=== PATIENT | male | born 1950 | race Caucasian/White ===

== ENCOUNTER 2022-02-01 13:43 | Emergency (ER) | payer OTHER ==
[2022-02-01 14:15] VITALS: BMI 33.3
[2022-02-01] MEDS ORDERED: ACETAMINOPHEN 325 MG TABLET (FP) PO ONE (14:50)
[2022-02-01 16:45] VITALS: RESP 18
[2022-02-01] MEDS ORDERED: ACETAMINOPHEN 325 MG TABLET (FP) ONE ×2 (16:58→17:00)
[2022-02-01 18:36] VITALS: BP 131/64; PULSE 69; TEMP 98.9
== END 2022-02-01 18:51 ==
LOC: JER 13:43
DX: U07.1 COVID-19 (principal)
CPT/HCPCS: 71045-TC-FY; 93005; 93010; 99283-25

== ENCOUNTER 2022-02-05 10:29 | Inpatient (IN) | payer OTHER ==
[2022-02-05 12:29] LABS: BASO % 0.3 % (0-2.0); EOS % 1.6 % (0-4.5); HEMATOCRIT 38.6 % (35.4-49); HEMOGLOBIN 12.5 GM/dL (11.7-16.9); LYMPH % 13.3 % (8-40); MCHC 32.3 g/dl (32.0-35.9); MEAN CELL VOLUME 92.9 fl (80-96); MEAN PLT VOLUME 8.9 fl (7.5-11.1); MONO % 13.7 % (3.8-10.2); NEUT % 71.1 % (42.8-82.8); PLATELET COUNT 214 10^3/uL (134-434); RBC 4.16 M/mm3 (4.00-5.60); RDW 14.2 % (11.9-15.9); WHITE BLOOD COUNT 7.7 K/mm3 (4.0-10.0)
[2022-02-05 12:54] LABS: CALCIUM 8.9 mg/dL (8.5-10.1)
[2022-02-05 12:55] LABS: ALBUMIN 2.8 g/dl (3.4-5.0); BLOOD UREA NITROGEN 18.3 mg/dL (7-18); MAGNESIUM 2.2 mg/dL (1.8-2.4)
[2022-02-05 12:59] LABS: BILIRUBIN,TOTAL 0.4 mg/dL (0.2-1)
[2022-02-05 13:00] LABS: TOT PROT 6.2 g/dl (6.4-8.2)
[2022-02-05] MEDS: INSULIN SLIDING SCALE (NOVOLOG) 1 VIAL SQ SCH (18:13)
[2022-02-05] MEDS: SODIUM CHLORIDE 1,000 ML IV SCH (18:13)
[2022-02-05] MEDS ORDERED: BLOOD GLUCOSE TRANSMITTER TP SCH (21:15)
[2022-02-06] MEDS: CARVEDILOL 12.5 MG TABLET (FP) PO SCH ×3 (02:37→22:51)
[2022-02-06] MEDS: INSULIN SLIDING SCALE (NOVOLOG) 1 VIAL SQ SCH ×3 (02:37→22:53)
[2022-02-06] MEDS: SODIUM CHLORIDE 1,000 ML IV SCH ×2 (04:57→17:25)
[2022-02-06 08:02] LABS: BASO % 0.3 % (0-2.0); EOS % 2.2 % (0-4.5); HEMATOCRIT 38.2 % (35.4-49); HEMOGLOBIN 12.5 GM/dL (11.7-16.9); LYMPH % 18.2 % (8-40); MCH 30.2 pg (25.7-33.7); MCHC 32.7 g/dl (32.0-35.9); MEAN CELL VOLUME 92.4 fl (80-96); MEAN PLT VOLUME 9.2 fl (7.5-11.1); NEUT % 65.3 % (42.8-82.8); PLATELET COUNT 196 10^3/uL (134-434); RBC 4.13 M/mm3 (4.00-5.60); RDW 14.2 % (11.9-15.9); WHITE BLOOD COUNT 6.6 K/mm3 (4.0-10.0)
[2022-02-06 08:21] LABS: ALBUMIN 2.6 g/dl (3.4-5.0); CALCIUM 8.5 mg/dL (8.5-10.1)
[2022-02-06 08:22] LABS: BLOOD UREA NITROGEN 14.5 mg/dL (7-18)
[2022-02-06 08:24] LABS: CREATININE 0.8 mg/dL (0.55-1.3)
[2022-02-06 08:25] LABS: PHOSPHOROUS 2.4 mg/dL (2.5-4.9)
[2022-02-06 08:26] LABS: TOT PROT 5.8 g/dl (6.4-8.2)
[2022-02-06] MEDS ORDERED: FUROSEMIDE 20 MG TABLET (FP) PO SCH (10:00)
[2022-02-06 11:26] LABS: INR 1.14 (0.83-1.09); PROTHROMBIN TIME (PATIENT) 13.1 SEC (9.7-13.0)
[2022-02-06] MEDS: ASPIRIN 81 MG CHEWABLE TABLETS PO SCH (12:54)
[2022-02-06] MEDS: CHOLECALCIFEROL (VIT D3) 1,000 UNIT (25 MCG) TABLET PO SCH (12:54)
[2022-02-06] MEDS: PANTOPRAZOLE 40 MG TABLET PO SCH (12:54)
[2022-02-06] MEDS: ENOXAPARIN NA (PORCINE) 40 MG/0.4 ML DISP.SYRIN SQ SCH (13:38)
[2022-02-06] MEDS: FLUoxetine HCL 20 MG CAPSULE PO SCH (13:40)
[2022-02-06] MEDS: ENALAPRIL MALEATE 5 MG TABLET PO SCH (13:40)
[2022-02-06] MEDS: MULTIVITAMINS (DAILY MVI) TABLET (FP) PO SCH (13:40)
[2022-02-06] MEDS: prednisoLONE ACETATE 1% OPHTH SUSP 5 ML BOTTLE OD SCH (14:34)
[2022-02-06] MEDS: INSULIN (LEVEMIR) 100 UNITS/ML UNITS SQ SCH (22:51)
[2022-02-07] MEDS: INSULIN SLIDING SCALE (NOVOLOG) 1 VIAL SQ SCH ×4 (06:49→21:29)
[2022-02-07 09:45] LABS: CALCIUM 8.7 mg/dL (8.5-10.1)
[2022-02-07 09:46] LABS: ALBUMIN 2.6 g/dl (3.4-5.0); BLOOD UREA NITROGEN 15.8 mg/dL (7-18)
[2022-02-07] MEDS: ASPIRIN 81 MG CHEWABLE TABLETS PO SCH (09:48)
[2022-02-07] MEDS: CARVEDILOL 12.5 MG TABLET (FP) PO SCH ×2 (09:49→21:29)
[2022-02-07] MEDS: MULTIVITAMINS (DAILY MVI) TABLET (FP) PO SCH (09:49)
[2022-02-07] MEDS: CHOLECALCIFEROL (VIT D3) 1,000 UNIT (25 MCG) TABLET PO SCH (09:49)
[2022-02-07] MEDS: PANTOPRAZOLE 40 MG TABLET PO SCH (09:49)
[2022-02-07 09:50] LABS: BILIRUBIN,TOTAL 0.8 mg/dL (0.2-1)
[2022-02-07] MEDS: FLUoxetine HCL 20 MG CAPSULE PO SCH (09:52)
[2022-02-07] MEDS: ENALAPRIL MALEATE 5 MG TABLET PO SCH (09:52)
[2022-02-07] MEDS: ENOXAPARIN NA (PORCINE) 40 MG/0.4 ML DISP.SYRIN SQ SCH (09:53)
[2022-02-07] MEDS: prednisoLONE ACETATE 1% OPHTH SUSP 5 ML BOTTLE OD SCH (09:53)
[2022-02-07 14:25] VITALS: BMI 31.3
[2022-02-07] MEDS: INSULIN (NOVOLOG) ASPART 100 UNITS/ML 10ML VIAL SQ SCH ×2 (14:31→17:30)
[2022-02-07] MEDS: guaiFENesin/D-M SUGAR-FREE/ACLHOL-FREE 5 ML UNIT DOSE PO PRN (15:56)
[2022-02-07] MEDS ORDERED: INSULIN (LEVEMIR) 100 UNITS/ML UNITS SQ ONE (21:05)
[2022-02-07] MEDS: INSULIN (LEVEMIR) 100 UNITS/ML UNITS SQ SCH (21:29)
[2022-02-08] MEDS: INSULIN (NOVOLOG) ASPART 100 UNITS/ML 10ML VIAL SQ SCH ×3 (08:09→17:05)
[2022-02-08] MEDS: INSULIN SLIDING SCALE (NOVOLOG) 1 VIAL SQ SCH ×5 (08:09→23:10)
[2022-02-08 09:24] LABS: CALCIUM 8.7 mg/dL (8.5-10.1)
[2022-02-08 09:25] LABS: ALBUMIN 2.5 g/dl (3.4-5.0)
[2022-02-08 09:27] LABS: CREATININE 1.1 mg/dL (0.55-1.3)
[2022-02-08 09:28] LABS: TOT PROT 5.6 g/dl (6.4-8.2)
[2022-02-08] MEDS: PANTOPRAZOLE 40 MG TABLET PO SCH (10:33)
[2022-02-08] MEDS: FLUoxetine HCL 20 MG CAPSULE PO SCH (10:33)
[2022-02-08] MEDS: CARVEDILOL 12.5 MG TABLET (FP) PO SCH ×2 (10:33→22:48)
[2022-02-08] MEDS: MULTIVITAMINS (DAILY MVI) TABLET (FP) PO SCH (10:33)
[2022-02-08] MEDS: ASPIRIN 81 MG CHEWABLE TABLETS PO SCH (10:33)
[2022-02-08] MEDS: CHOLECALCIFEROL (VIT D3) 1,000 UNIT (25 MCG) TABLET PO SCH (10:33)
[2022-02-08] MEDS: ENALAPRIL MALEATE 5 MG TABLET PO SCH (10:33)
[2022-02-08] MEDS: prednisoLONE ACETATE 1% OPHTH SUSP 5 ML BOTTLE OD SCH (10:34)
[2022-02-08] MEDS: ENOXAPARIN NA (PORCINE) 40 MG/0.4 ML DISP.SYRIN SQ SCH (10:34)
[2022-02-08] MEDS: guaiFENesin/D-M SUGAR-FREE/ACLHOL-FREE 5 ML UNIT DOSE PO PRN (10:59)
[2022-02-08] MEDS: INSULIN (LEVEMIR) 100 UNITS/ML UNITS SQ SCH (22:48)
[2022-02-09] MEDS: INSULIN SLIDING SCALE (NOVOLOG) 1 VIAL SQ SCH ×4 (06:08→23:24)
[2022-02-09] MEDS: INSULIN (NOVOLOG) ASPART 100 UNITS/ML 10ML VIAL SQ SCH ×3 (06:08→16:55)
[2022-02-09 09:42] LABS: CALCIUM 8.7 mg/dL (8.5-10.1)
[2022-02-09 09:43] LABS: ALBUMIN 2.7 g/dl (3.4-5.0); BLOOD UREA NITROGEN 15.8 mg/dL (7-18)
[2022-02-09 09:46] LABS: CREATININE 1.3 mg/dL (0.55-1.3)
[2022-02-09 09:47] LABS: BILIRUBIN,TOTAL 0.7 mg/dL (0.2-1); TOT PROT 6.1 g/dl (6.4-8.2)
[2022-02-09] MEDS: INSULIN (LEVEMIR) 100 UNITS/ML UNITS SQ SCH (10:03)
[2022-02-09] MEDS: PANTOPRAZOLE 40 MG TABLET PO SCH (10:04)
[2022-02-09] MEDS: ENALAPRIL MALEATE 5 MG TABLET PO SCH (10:04)
[2022-02-09] MEDS: ENOXAPARIN NA (PORCINE) 40 MG/0.4 ML DISP.SYRIN SQ SCH (10:04)
[2022-02-09] MEDS: CARVEDILOL 12.5 MG TABLET (FP) PO SCH ×2 (10:04→23:21)
[2022-02-09] MEDS: CHOLECALCIFEROL (VIT D3) 1,000 UNIT (25 MCG) TABLET PO SCH (10:04)
[2022-02-09] MEDS: ASPIRIN 81 MG CHEWABLE TABLETS PO SCH (10:04)
[2022-02-09] MEDS: FLUoxetine HCL 20 MG CAPSULE PO SCH (10:05)
[2022-02-09] MEDS: prednisoLONE ACETATE 1% OPHTH SUSP 5 ML BOTTLE OD SCH (10:05)
[2022-02-09] MEDS: MULTIVITAMINS (DAILY MVI) TABLET (FP) PO SCH (10:05)
[2022-02-09] MEDS ORDERED: INSULIN (LEVEMIR) 100 UNITS/ML UNITS SQ SCH (23:05)
[2022-02-10] MEDS: INSULIN (LEVEMIR) 100 UNITS/ML UNITS SQ SCH ×4 (00:02→23:28)
[2022-02-10] MEDS: INSULIN (NOVOLOG) ASPART 100 UNITS/ML 10ML VIAL SQ SCH ×3 (07:53→17:02)
[2022-02-10] MEDS: INSULIN SLIDING SCALE (NOVOLOG) 1 VIAL SQ SCH ×4 (07:54→23:24)
[2022-02-10] MEDS: prednisoLONE ACETATE 1% OPHTH SUSP 5 ML BOTTLE OD SCH (10:15)
[2022-02-10] MEDS: FLUoxetine HCL 20 MG CAPSULE PO SCH (10:56)
[2022-02-10] MEDS: ENOXAPARIN NA (PORCINE) 40 MG/0.4 ML DISP.SYRIN SQ SCH (10:56)
[2022-02-10] MEDS: ASPIRIN 81 MG CHEWABLE TABLETS PO SCH (10:57)
[2022-02-10] MEDS: PANTOPRAZOLE 40 MG TABLET PO SCH (10:57)
[2022-02-10] MEDS: MULTIVITAMINS (DAILY MVI) TABLET (FP) PO SCH (10:57)
[2022-02-10] MEDS: CHOLECALCIFEROL (VIT D3) 1,000 UNIT (25 MCG) TABLET PO SCH (10:57)
[2022-02-10] MEDS: CARVEDILOL 12.5 MG TABLET (FP) PO SCH ×2 (10:57→23:17)
[2022-02-10] MEDS: ENALAPRIL MALEATE 5 MG TABLET PO SCH (13:10)
[2022-02-10] MEDS ORDERED: DEXTROSE 50%-WATER 25 GM/50 ML DISP.SYRIN IVPUSH ONE (14:39)
[2022-02-11] MEDS: INSULIN (NOVOLOG) ASPART 100 UNITS/ML 10ML VIAL SQ SCH ×2 (07:11→11:17)
[2022-02-11] MEDS: INSULIN SLIDING SCALE (NOVOLOG) 1 VIAL SQ SCH ×2 (07:11→11:17)
[2022-02-11] MEDS: ENOXAPARIN NA (PORCINE) 40 MG/0.4 ML DISP.SYRIN SQ SCH (10:21)
[2022-02-11] MEDS: PANTOPRAZOLE 40 MG TABLET PO SCH (10:22)
[2022-02-11] MEDS: CARVEDILOL 12.5 MG TABLET (FP) PO SCH (10:22)
[2022-02-11] MEDS: MULTIVITAMINS (DAILY MVI) TABLET (FP) PO SCH (10:22)
[2022-02-11] MEDS: CHOLECALCIFEROL (VIT D3) 1,000 UNIT (25 MCG) TABLET PO SCH (10:22)
[2022-02-11] MEDS: ENALAPRIL MALEATE 5 MG TABLET PO SCH (10:22)
[2022-02-11] MEDS: ASPIRIN 81 MG CHEWABLE TABLETS PO SCH (10:22)
[2022-02-11] MEDS: FLUoxetine HCL 20 MG CAPSULE PO SCH (10:23)
[2022-02-11] MEDS: prednisoLONE ACETATE 1% OPHTH SUSP 5 ML BOTTLE OD SCH (10:24)
[2022-02-11] MEDS: INSULIN (LEVEMIR) 100 UNITS/ML UNITS SQ SCH (10:51)
[2022-02-11 11:06] VITALS: BP 163/76; PULSE 73; RESP 18; TEMP 99.1
== END 2022-02-11 14:00 | DRG 179 ==
LOC: JER 10:29 → JERBED 13:50 → OBSVTOIN 15:58 → JERBED 23:45 → J7W 23:49
PROVIDERS: ADMIT Internal Medicine; ATTEND Internal Medicine
DX: U07.1 COVID-19 (principal); E11.42 Type 2 diabetes mellitus with diabetic polyneuropathy; E66.9 Obesity, unspecified; Z68.30 Body mass index [BMI] 30.0-30.9, adult; K75.9 Inflammatory liver disease, unspecified; E11.319 Type 2 diabetes mellitus with unspecified diabetic retinopathy without macular edema; R94.5 Abnormal results of liver function studies; R53.83 Other fatigue; E11.65 Type 2 diabetes mellitus with hyperglycemia; E11.51 Type 2 diabetes mellitus with diabetic peripheral angiopathy without gangrene
CPT/HCPCS: 0241U-QW; 36415; 71045-TC-FY; 76705-TC; 80053; 82140; 82962; 83036; 83735; 84100; 84484; 85025; 85610; 86705; 86709; 86803; 87340; 87517; 93005; 93010; 99285-25; C9803-CS; G0378; U0003; U0005